=== PATIENT | female | born 1995 | race Caucasian/White ===

== ENCOUNTER 2017-02-11 12:22 | Emergency (ER) | payer OTHER ==
[~2017-02-11] VITALS: Ht 154.9 cm; Wt 75.8 kg
[2017-02-11] MEDS ORDERED: CARAFATE1 GM PO (16:01)
[2017-02-11] MEDS ORDERED: ONDANSETRON ODT8 MG PO (16:01)
== END 2017-02-11 16:18 | disposition home or self-care (01) ==
LOC: ED 12:22
DX: O99.613 Diseases of the digestive system complicating pregnancy, third trimester (principal); K21.9 Gastro-esophageal reflux disease without esophagitis; O99.013 Anemia complicating pregnancy, third trimester; D64.9 Anemia, unspecified; Z88.0 Allergy status to penicillin; Z88.8 Allergy status to other drugs, medicaments and biological substances; Z3A.28 28 weeks gestation of pregnancy
CPT/HCPCS: 59025; 80053; 81001; 83690; 84703; 85025; 96361; 96374; 99283; J2405; J7030